=== PATIENT | male | born 1985 | race Two or more races ===

== ENCOUNTER 2017-01-10 14:42 | Emergency (ER) | payer MEDICAID ==
[~2017-01-10] VITALS: Ht 182.9 cm; Wt 77.0 kg
[2017-01-10] MEDS ORDERED: IBUPROFEN 600MG TABLET PO ONE (16:15)
[2017-01-10 16:52] VITALS: BP 128/89
== END 2017-01-10 17:55 | disposition home or self-care (01) ==
LOC: ER 15:02
DX: R07.9 Chest pain, unspecified (principal); F12.10 Cannabis abuse, uncomplicated; F17.200 Nicotine dependence, unspecified, uncomplicated
CPT/HCPCS: 71010; 93005; 99284

== ENCOUNTER 2019-03-26 09:55 | Emergency (ER) | payer MEDICAID ==
[~2019-03-26] VITALS: Ht 182.9 cm; Wt 82.0 kg
[2019-03-26 10:13] VITALS: BP 115/82
== END 2019-03-26 10:37 | disposition home or self-care (01) ==
LOC: ER 09:55
DX: L98.8 Other specified disorders of the skin and subcutaneous tissue (principal); I10 Essential (primary) hypertension
CPT/HCPCS: 99282; Z7610

== ENCOUNTER 2019-07-06 18:20 | Emergency (ER) | payer MEDICAID ==
[~2019-07-06] VITALS: Ht 182.9 cm; Wt 86.0 kg
[2019-07-06 18:24] VITALS: BP 146/98
== END 2019-07-06 19:14 | disposition left against medical advice (07) ==
LOC: ER 18:20
DX: R07.89 Other chest pain (principal); Z53.21 Procedure and treatment not carried out due to patient leaving prior to being seen by health care provider
CPT/HCPCS: 93005

== ENCOUNTER 2021-03-28 04:38 | Emergency (ER) | payer MEDICAID ==
[~2021-03-28] VITALS: Ht 172.7 cm; Wt 79.0 kg
[2021-03-28] MEDS ORDERED: ACET-2708 MT (04:58)
[2021-03-28] MEDS ORDERED: BACITRACIN ZINC OINT UDPKT TOP ONE (05:00)
[2021-03-28] MEDS ORDERED: TETANUS, DIPHTHERIA, PERTUSSIS VAC/PF 0.5ML (>7YR OLD) IM ONE (05:15)
[2021-03-28 05:30] VITALS: BP 131/81
== END 2021-03-28 05:30 | disposition home or self-care (01) ==
LOC: ER 04:56
DX: S50.811A Abrasion of right forearm, initial encounter (principal); F12.10 Cannabis abuse, uncomplicated; W17.89XA Other fall from one level to another, initial encounter; Y93.89 Activity, other specified; Y92.89 Other specified places as the place of occurrence of the external cause; Y99.8 Other external cause status
CPT/HCPCS: 99283

== ENCOUNTER 2021-07-19 13:14 | Emergency (ER) | payer MEDICAID ==
[~2021-07-19] VITALS: Ht 182.9 cm; Wt 83.0 kg
[~2021-07-19 13:14] MED LIST: ACET-2708 MT
[2021-07-19 13:27] VITALS: BP 130/82
== END 2021-07-19 19:13 | disposition left against medical advice (07) ==
LOC: ER 13:14
DX: Z53.21 Procedure and treatment not carried out due to patient leaving prior to being seen by health care provider (principal)

== ENCOUNTER 2023-09-03 17:07 | Emergency (ER) | payer MEDICAID ==
[~2023-09-03] VITALS: Ht 180.3 cm; Wt 68.0 kg
[2023-09-03 17:27] VITALS: TEMP 98.5; O2SAT 100
[2023-09-03 19:45] VITALS: BP 135/91; PULSE 111; RESP 20
[2023-09-03] MEDS ORDERED: KETOROLAC 30MG/ML VIAL IM ONE (19:45)
[2023-09-03] MEDS ORDERED: DEXAMETHASONE 10 MG/ML VIAL PO ONE (19:45)
[2023-09-03 21:16] LABS: MONOTEST NEGATIVE (NEGATIVE)
[2023-09-03] MEDS ORDERED: CLOT10TR2 MT (21:23)
[2023-09-03] MEDS ORDERED: IBUP-2028 MT (21:23)
== END 2023-09-03 21:37 | disposition home or self-care (01) ==
LOC: ER 17:07
DX: B37.0 Candidal stomatitis (principal); I10 Essential (primary) hypertension; F12.10 Cannabis abuse, uncomplicated
CPT/HCPCS: 99283; 87430; 86308; 87070; 96372; J1100; J1885

== ENCOUNTER 2023-09-08 22:04 | Emergency (ER) | payer MEDICAID ==
[~2023-09-08] VITALS: Ht 188 cm; Wt 77.0 kg
[2023-09-08 22:04] VITALS: BP 0/0; PULSE 0; RESP 16; TEMP 95; O2SAT 98
[~2023-09-08 22:04] MED LIST changes: +CLOT10TR2 MT; +IBUP-2028 MT
== END 2023-09-09 05:27 ==
LOC: ER 22:04
DX: I46.9 Cardiac arrest, cause unspecified (principal)
CPT/HCPCS: 82962; 92950; 99291